=== PATIENT | male | born 1955 | race Caucasian/White ===

== ENCOUNTER 2017-02-13 17:55 | Emergency (ER) | payer BC, OTHER ==
[~2017-02-13] VITALS: Ht 180.3 cm; Wt 99.8 kg
[~2017-02-13 17:55] MED LIST: AMLO5TAB4 PO; ECO81 PO; FENO160 PO; LOP600 PO; LOSA50TA3 PO
[2017-02-13 18:03] VITALS: BP 166/91; PULSE 74; RESP 20; TEMP 98.8; O2SAT 97
--- NOTE | 2017-02-13 18:10 | NUR ---
Pt placed to ER bed 08 and to gown. Report given to SIMONE Payne.
[2017-02-13] MEDS ORDERED: ASPIRIN 325 MG TABLET PO ONE (18:15)
--- NOTE | 2017-02-13 18:16 | NUR ---
Patient to ER C/O upper left side back pain 05/08 radiating to left shoulder. Patient states that it started 2.5 weeks ago and it did nto get any better, states he saw another provider, got a toradol shot but pain is persistent. Denies N/V, denies chest pain, denies trauma, no signs of acute distress.
--- NOTE | 2017-02-13 18:19 | NUR ---
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 Patient identified x2
[2017-02-13 18:35] LABS: BASOPHILS % (AUTO) 0.7 % (0.0-2.0); EOSINOPHILS # (AUTO) 0.4 K/uL (0.0-0.4); EOSINOPHILS % (AUTO) 5.7 % (0.0-4.0); HEMATOCRIT 38.9 % (36-54); HEMOGLOBIN 13.6 g/dL (14.0-18.0); MEAN CORPUSCULAR HEMOGLOBIN 31 pg (27-31); MEAN CORPUSCULAR HGB CONC 35 % (32-36); MEAN CORPUSCULAR VOLUME 89 fL (79.0-98.0); MONOCYTES # (AUTO) 0.8 K/uL (0.0-1.0); MONOCYTES % (AUTO) 11.5 % (1.7-9.3); NEUTROPHILS # (AUTO) 3.9 K/uL (1.8-7.7); NEUTROPHILS % (AUTO) 54.1 % (40.0-70.0); PLATELET COUNT (AUTO) 273 K/uL (130-430); RED BLOOD CELL COUNT(AUTO) 4.38 MIL/uL (4.2-6.2); RED CELL DISTRIBUTION WIDTH 12.7 % (9.0-15.0); WHITE BLOOD COUNT (AUTO) 7.1 K/uL (4.8-10.8)
[2017-02-13 18:38] LABS: CALCIUM 8.5 mg/dL (8.4-11.0); CREATININE 1.66 mg/dL (0.55-1.30); POTASSIUM 4.4 mmol/L (3.5-5.1)
[2017-02-13 18:41] LABS: PROTHROMBIN TIME 10.7 SECS (9.5-12.5)
[2017-02-13 18:43] LABS: ALBUMIN 3.8 g/dL (3.4-4.8); TOTAL BILIRUBIN 0.2 mg/dL (0.0-1.0); TOTAL PROTEIN, SERUM 7.3 g/dL (6.4-8.3)
[2017-02-13 18:44] LABS: BILIRUBIN,URINE NEGATIVE (NEGATIVE); BLOOD, URINE NEGATIVE (NEGATIVE); CLARITY/URINE CLEAR (CLEAR); COLOR,URINE YELLOW (YELLOW); GLUCOSE,URINE NEGATIVE (NEGATIVE); KETONES,URINE NEGATIVE (NEGATIVE); LEUKOCYTE ESTERASE ,URINE NEGATIVE (NEGATIVE); NITRITE, URINE NEGATIVE (NEGATIVE); PROTEIN URINE NEGATIVE (NEGATIVE); UROBILINOGEN,URINE 0.2 (0.2-1.0)
[2017-02-13] MEDS ORDERED: CARISOPRODOL 350 MG TABLET PO ONE (19:30)
--- NOTE | 2017-02-13 19:41 | NUR ---
Medication given as per MD orders tolerated well.
--- NOTE | 2017-02-13 19:44 | NUR ---
ER at bedside examining patient.
[2017-02-13 20:00] VITALS: BP 143/76; PULSE 67; RESP 20; TEMP 98.8; O2SAT 97
--- NOTE | 2017-02-13 20:00 | NUR ---
Patient given written and verbal discharge instructions and verbalizes understanding. ER MD discussed with patient the results and treatment provided. Given copies of tests performed in ER. Patient in stable condition. ID arm band removed. Rx of SOMA given. Patient educated on pain management and to follow up with PMD. Pain Scale 0/10. Opportunity for questions provided and answered.
== END 2017-02-13 20:00 | disposition home or self-care (01) ==
LOC: SED 17:55
DX: M62.838 Other muscle spasm (principal); E78.00 Pure hypercholesterolemia, unspecified; I10 Essential (primary) hypertension; Z86.73 Personal history of transient ischemic attack (TIA), and cerebral infarction without residual deficits; Z88.8 Allergy status to other drugs, medicaments and biological substances
CPT/HCPCS: 36415; 71010; 80053; 80061; 81003; 82550-TC; 83880; 84484; 85025; 85379; 85610-TC; 85730-TC; 93005; 99285